=== PATIENT | female | born 1955 | race Caucasian/White ===

== ENCOUNTER 2016-08-12 08:11 | Inpatient (IN) | payer MEDICARE ==
[~2016-08-12] VITALS: Ht 152.4 cm; Wt 114.2 kg
[2016-08-12] MEDS ORDERED: ASPIRIN 81 MG CHEW TABLET PO ONE (08:30)
[2016-08-12] MEDS ORDERED: BUPR15TASR PO (08:39)
[2016-08-12] MEDS ORDERED: NIAS1TAB PO (08:39)
[2016-08-12] MEDS ORDERED: DRIS50002 PO (08:39)
[2016-08-12] MEDS ORDERED: LEVO200T4 PO (08:39)
[2016-08-12] MEDS ORDERED: CYMB60CA3 PO (08:39)
[2016-08-12] MEDS ORDERED: GLIM4TAB PO (08:39)
[2016-08-12] MEDS ORDERED: HUMA100I5 SC ×2 (08:39→12:52)
[2016-08-12] MEDS ORDERED: VITA100T20 PO (08:39)
[2016-08-12] MEDS ORDERED: PREG100CA PO (08:39)
[2016-08-12] MEDS ORDERED: FURO20TA2 PO (08:39)
[2016-08-12] MEDS ORDERED: LOVA20TA2 PO (08:39)
[2016-08-12] MEDS ORDERED: MELO7.5T7 PO (08:39)
[2016-08-12] MEDS ORDERED: TOUJ1.2I SC ×2 (08:39)
[2016-08-12] MEDS ORDERED: FENO145T PO (08:39)
[2016-08-12] MEDS ORDERED: PROP12CASA PO (08:39)
[2016-08-12] MEDS ORDERED: LOSA50TA20 PO (08:39)
[2016-08-12] MEDS ORDERED: VICT18IN SC (08:39)
[2016-08-12] MEDS ORDERED: PANT40TA2 PO (08:39)
[2016-08-12] MEDS ORDERED: AMIT10TA PO (08:39)
[2016-08-12] MEDS: buPROPion **SR TABLET** (ZYBAN) 150MG PO SCH ×2 (09:00→20:46)
[2016-08-12] MEDS ORDERED: FUROSEMIDE 20 MG TAB PO SCH (09:00)
[2016-08-12] MEDS ORDERED: DULoxetine 30 MG CAP (CYMBALTA) PO SCH (09:00)
[2016-08-12] MEDS: BACLOFEN 10 MG TAB PO SCH ×2 (09:00→20:46)
[2016-08-12 10:07] LABS: BASO % 0.4 % (0.0-1.0); EOS # 0.1 K/mm3 (0.0-0.50); EOS % 2.8 % (0.0-3.0); LARGE UNSTAINED CELL # 0.1 K/mm3 (0.0-0.4); LYMPH # 1.2 K/mm3 (1.5-4.5); LYMPH % 31.2 % (24.0-44.0); MEAN CORPUSCULAR HEMOGLOBIN 31.5 pg (27.0-33.0); MEAN CORPUSCULAR HGB CONC 33.2 g/dl (32.0-36.5); MEAN CORPUSCULAR VOLUME 94.8 fl (80.0-96.0); MONO # 0.2 K/mm3 (0.0-0.8); MONO % 6.1 % (0.0-5.0); NEUTROPHILS # 2.1 K/mm3 (1.8-7.7); NEUTROPHILS % 57.5 % (36.0-66.0); PLATELET COUNT, AUTOMATED 151 k/mm3 (150-450); RED CELL DISTRIBUTION WIDTH 13.8 % (11.5-14.5); WHITE BLOOD COUNT 3.7 K/mm3 (4.0-10.0)
[2016-08-12 10:29] LABS: METHADONE URINE NEGATIVE (NEGATIVE)
[2016-08-12 10:32] LABS: ANION GAP 6 MEQ/L (8-16); BLOOD UREA NITROGEN 55 MG/DL (7-18); CALCIUM LEVEL 8.5 MG/DL (8.8-10.2); CARBON DIOXIDE LEVEL 31 MEQ/L (21-32); CHLORIDE LEVEL 104 MEQ/L (98-107); CREATININE FOR GFR 2.85 MG/DL (0.55-1.02); GLOMERULAR FILTRATION RATE 17.9 (>45); GLUCOSE, FASTING 330 MG/DL (80-110); POTASSIUM SERUM 4.5 MEQ/L (3.5-5.1); SODIUM LEVEL 141 MEQ/L (136-145)
[2016-08-12] MEDS ORDERED: NS 500 ML IV ONE (11:45)
[2016-08-12] MEDS ORDERED: ACETAMINOPHEN TAB 650MG DOSE (2X325MG) PO PRN (12:45)
[2016-08-12] MEDS ORDERED: DEXTROSE 50% 50 ML SYRINGE IV PRN (12:45)
[2016-08-12] MEDS ORDERED: GLUCOSE 4 GM CHEW TABLET PO PRN (12:45)
[2016-08-12] MEDS ORDERED: GLUCAGON FOR INJ 1 MG VIAL (J1610) SC PRN (12:45)
[2016-08-12] MEDS ORDERED: ALBU17IN INH (12:52)
[2016-08-12] MEDS ORDERED: PROP120C PO (12:52)
[2016-08-12] MEDS ORDERED: BACL10TA2 PO (12:52)
[2016-08-12] MEDS ORDERED: NIAC500T55 PO (12:52)
[2016-08-12] MEDS: HumaLOG INSULIN (NovoLOG) PER UNIT SC SCH ×3 (13:10→20:47)
[2016-08-12] MEDS ORDERED: ALBUTEROL 90 MCG/ACT 8GM HFA INHALER INH PRN (13:30)
[2016-08-12] MEDS: NS 1,000 ML IV SCH (13:31)
[2016-08-12 14:05] VITALS: BP 116/56
[2016-08-12 14:15] VITALS: BP 117/74
--- NOTE | 2016-08-12 14:15 | REP ---
CT Head without contrast HISTORY: Altered mental status COMPARISON: None There is no intraparenchymal hemorrhage, acute infarct, mass or midline shift. The ventricular system is normal in appearance. There is no extra cerebral collection. There is no fracture. Mucosal thickening is present in the right maxillary and sphenoid sinuses are IMPRESSION: There is no intracranial lesion. Signed by Enrique Villarreal MD 08/12/2016 02:07 P
--- NOTE | 2016-08-12 14:52 | HPE ---
DATE OF ADMISSION: 08/12/2016 PRIMARY CARE PROVIDER: Dr. Lopez in [place]. HISTORY OF PRESENT ILLNESS: This patient is a 60-year-old female with a past medical history significant for depression, chronic kidney disease (CKD), diabetes, hypothyroidism who presented to [facility] on 08/12/2016 for acute discomfort. The patient stated when she woke up this morning, she was not feeling well and she feels her fate is melting. Denies any other significant symptoms. Review of systems includes 2 days ago around 11 p.m., the patient had acute mental status changes in the hotel observed by the son and the episode lasted for 1 hour, per son, "she is acting schizophrenic. She is counting numbers continuously and she still has repetitive movements resembling aerobic exercise. A similar episode occurring which later she had a collapse. The patient remained in a deep unconscious state for 10 days. That event occurred in the [facility] in [place], [place]. Later the patient had another trauma. The patient injured her head in June. At that time, the patient was hospitalized in the [facility] in [place]. Other significant history includes there a questionable visual hallucination in February. The patient was also complaining about auditory hallucinations since January 2016 and auditory hallucinations occurred approximately one to two times a week. Every time is it as thought two people are talking to each other. She does not know what the conversation is about. But she never had thoughts of hurting herself or hurting others. No new recent medication changes. ALLERGIES: No known drug allergies. PAST MEDICAL HISTORY: Diabetes. Chronic kidney disease. Endometriosis, status post hysterectomy. History of thyroid nodules, status post thyroidectomy resulting in hypothyroidism. Depression. PAST SURGICAL HISTORY: Hysterectomy. Thyroidectomy. Cataract surgery. SOCIAL HISTORY: Denies smoking. No denies alcohol use. Denies recreational drug use. The patient is a full code. HOME MEDICATIONS: - Ventolin two puffs inhalation four times a day. - amitriptyline 60 mg by mouth nightly. - baclofen 20 mg by mouth twice a day - bupropion 150 mg by mouth twice a day - vitamin B12 200 mcg by mouth daily - Cymbalta 60 mg by mouth daily - fenofibrate 145 mg by mouth daily - Lasix 20 mg by mouth daily - glimepiride 4 mg by mouth twice a day - insulin Lispro 30 units subcu every morning. - Synthroid 200 mcg by mouth daily - Victoza 1.8 mg subcu daily - losartan 15 mg by mouth daily - lovastatin 20 mg by mouth daily - meloxicam 50 mg by mouth daily - niacin 500 mg by mouth nightly - pantoprazole 40 mg by mouth daily - Lyrica 100 mg by mouth three times a day - propranolol 40 mg by mouth daily - Toujeo 80 units subcu every morning. - Toujeo 20 units subcu nightly. REVIEW OF SYSTEMS: General: No fever. No chills. HEENT: No vision changes. No auditory changes. Cardiovascular: No chest pain. No palpitations. Respiratory: No cough. No sputum production. No shortness of breath. GI: No nausea. No vomiting. No abdominal pain. Musculoskeletal: The patient has a chronic lymphedema of the lower extremities requiring Lasix regularly. The patient does have a history of right shoulder joint dislocation. Neurological: The patient has a history of frequent falls. The patient has a significant decrease of sensation throughout the whole body. Below the neck is the most significantly below the waist. VITAL SIGNS: Temperature is 98.3, pulse is 72, blood pressure is 138/92, pulse ox is 98% in room air. GENERAL: Morbidly obese. No sign of acute distress. Alert and oriented times three. HEENT: Normocephalic, atraumatic. Extraocular muscles are grossly intact. CARDIOVASCULAR: Distant heart sounds. Positive S1, S2. Regular rate. LUNGS: Clear to auscultation bilaterally. ABDOMEN: Soft, nontender, nondistended. Bowel sounds are present. No rebound. No guarding. EXTREMITIES: Nonsignificant edema. No cyanosis NEUROLOGICAL: Significant decrease, almost complete loss of sensation below the waist. Decreased sensation below the neck. There is some sensation to fine touch of the cervical and the facial area. Muscle strength 5/5 throughout. LABORATORY DATA: WBC 3.7, hemoglobin 11.9, hematocrit 35.8, platelet count 151. Sodium 141, potassium 4.5, chloride 104, carbon dioxide 31, BUN 50, creatinine 2.85, GFR 17.9, fasting glucose 330, calcium 8.5, total CK 415, troponin I is less than 0.02. Urine toxicology is negative. UA is negative. ASSESSMENT/PLAN: 1. Acute on chronic kidney injury: We received a record from [facility]. On 03/25/2016 the patient had a BUN of 28, creatinine 1.3. Currently, the patient has a creatinine of 2.85 with a GFR of 17.9. The patient was started on IV fluids. Lasix will be on hold. 2. Uncontrolled diabetes: The patient presents with an elevated glucose level. Will follow with an A1c. At this moment, the patient will be covered with long-acting insulin on a sliding scale and consistent carbohydrate diet. 3. Altered mental status: The patient had schizophrenic type of behavior approximately 2 days ago combined with auditory hallucinations. This is likely, the patient may have a significant psychiatric condition that was not diagnosed in the past. Once the patient is medically stable, we will likely pursue psychiatrist consultation. 4. History of depression: Continue patient's home medications. 5. Frequent falls with decreased sensation: Initially MRI was ordered, however, the patient states that she has a severe claustrophobia. She cannot tolerate the MRI even with sedation. She may only consider an open MRI. Unfortunately, we may not have a capacity at this moment. Will follow with a CT scan first. 6. Deep venous thrombosis (DVT) prophylaxis: The patient will be on heparin.
[2016-08-12 14:58] LABS: CHOLESTEROL LEVEL 132 MG/DL (<200); T UPTAKE 38 % (30-39); THYROXINE (T4) 11.7 UG/DL (4.5-12.0); TRIGLYCERIDES LEVEL 231 MG/DL (<150)
[2016-08-12] MEDS: HEPARIN SOD (PORCINE) 5000 UNITS/ML VIAL SC SCH ×2 (15:39→21:42)
[2016-08-12] MEDS: PREGABALIN 100 MG CAP (LYRICA) PO SCH ×2 (15:40→20:46)
[2016-08-12] MEDS: PROPRANOLOL 60 MG LA CAP PO SCH (15:40)
[2016-08-12] MEDS: PANTOPRAZOLE 40MG TAB (PROTONIX) PO SCH (15:41)
[2016-08-12] MEDS: LOSARTAN 50 MG TAB PO SCH (15:41)
[2016-08-12] MEDS: FENOFIBRATE 145 MG TAB (TRICOR) PO SCH (15:41)
[2016-08-12] MEDS: AMITRIPTYLINE 10 MG TAB PO SCH (20:46)
[2016-08-12] MEDS: NIACIN SR (NIASPAN) 500 MG TAB PO SCH (20:46)
[2016-08-12] MEDS: SIMVASTATIN 20 MG TAB PO SCH (20:46)
--- NOTE | 2016-08-12 20:55 | ECGEPIP ---
Stationary ECG Study 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
[2016-08-12] MEDS ORDERED: LEVEMIR (INSULIN DETEMIR) 1 UNITS/0.01ML SC SCH (21:00)
[2016-08-12 22:00] VITALS: BP 120/67
--- NOTE | 2016-08-12 22:30 | MHCRPDOC ---
[facility] Consultation Consultation DATE OF CONSULTATION: 08/12/16 CONSULTATION REQUESTED BY: REASON FOR CONSULTATION: Auditory and visual hallucinations, behavioral changes. RELEVANT HISTORY: Patient is a 89 year old female who resides in [place] but is currently in the [place] area because she has a son living in this area and she came for her grandson's graduation. She reports she has been seing strange things, like two people talking to each other. She says she can see them talk but she can't hear their conversation. Recently she had another episode when she saw snakes at her house in [place] and the rest of her family didn't see anything abnormal (no snakes). Recently she woke up and she couldn' t control her arms, she felt as if they were moving on their own. She explains it was almost as if she was flying. She also said that she kept moving involuntarily and it seemed as if she was doing abdominal crunches. PAST PSYCHIATRIC HISTORY: Longstanding history of depression treated with Wellbutrin, although she has been taking Cymbalta and Amytriptiline too. She says she takes Amytriptiline for chronic neck and back pain, takes Wellbutrin for depression and she is aware Cymbalta is for depression but can't recall when it was prescribed. She says she started feeling depressed when she was 43 years old, shortly after her father , with whom she was very close. Her mother had when she was 38. She went to a therapist and to a Psychiatrist but claims the medications she took, made her very sleepy, overtly sedated, and then, she consulted with another psychiatrist. She doesn't remember why she decided to stop seeing him but she has kept taking antidepressants that have been prescribed by her PCP. She says she became very depressed when one of her sons was diagnosed with leukemia and when her other son went to [employer], where he was stationed for some years. Denies history of trauma/abuse, denies substance abuse. PAST MEDICAL HISTORY: Hypothyroidism, Diabetes, Obesity, Lymphedema FAMILY HISTORY: Mother: Mother when she was 38 years old, apparently of cardiac problems Father: . Siblings: Children: has three children who are in good health PERSONAL AND SOCIAL HISTORY: The patient was born and raised in [place]. Reports she had a normal childhood, with loving and caring parents. Got , had three children with whom she has a good and close relationship. 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 She also says that she went back to school when she retired." Resides in: [place] Marital Status: M Children: Three children Employment: She is retired. SUBSTANCE ABUSE HISTORY: Smoking: Denies ETOH: Denies Illicit Drugs: Denies LEGAL HISTORY: Denies MENTAL STATUS EXAMINATION: Patient is a 60 year old who is alert and oriented x 3, pleasant, cooperative, with good eye contact and good rapport Speech is Circumstantial and slightly tangential. Language skills are Good. Thought processes including: Coherent, goal directed but circumstantial Thought content: About her medical illness and worries about her losses (mother , father) Abstract reasoning, and computation: Fair Description of associations: Slightly loose. Description of abnormal or psychotic thoughts: She reports visual hallucinations , denies thought delusions, denies suicidal or homicidal ideation Judgment: Fair Insight: Fair. Orientation to Oriented x 3. Recent and remote memory: Intact. Attention span and concentration: Fair. Language: Noraml. Fund of knowledge: Adequate. Mood:"Sad". Affect: Sad, mood congruent,. DIAGNOSIS: 1. R/O Major Depressive disorder, chronic with psychotic features 2. R/O psychosis secondary to medical condition PLAN: 1. Recommend liver function tests, blood chemistry, MRI of the brain. Noticed CT scan was normal, but maybe MRI can give some additional information. 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 The abnormal movements that she suffered could be related to problems within the basal ganglia. A thorough medical workup is recommended. 2. Medications> Recommend to slowly taper Cymbalta to 30 mgs PO QD for three days and then, 30 mgs every other day for three more days and keep her on Wellbutrin. She should be started on Haldol 2 mgs PO Q4 hrs. to control the hallucinations and Benadryl 50 mgs. PO TID PRN for possible extrapyramidal side effects that could be caused by Haldol Vital Signs Vital Signs Date Time Temp Pulse Resp B/P (MAP) Pulse Ox O2 Delivery O2 Flow Rate FiO2 7/17 15:41 117/74 08/12/16 15:40 78 08/12/16 14:15 98.3 18 96 Room Air Laboratory Data 24H Labs Laboratory Tests 2 08/12/16 09:11: White Blood Count 3.7L, Red Blood Count 3.78L, Hemoglobin 11.9L, Hematocrit 35.8L, Mean Corpuscular Volume 94.8, Mean Corpuscular Hemoglobin 31.5, Mean Corpuscular Hemoglobin Concent 33.2, Red Cell Distribution Width 13.8, Platelet Count 151, Neutrophils (%) (Auto) 57.5, Lymphocytes (%) (Auto) 31.2, Monocytes ( %) (Auto) 6.1H, Eosinophils (%) (Auto) 2.8, Basophils (%) (Auto) 0.4, Neutrophils # (Auto) 2.1, Lymphocytes # (Auto) 1.2L, Monocytes # (Auto) 0.2, Eosinophils # (Auto) 0.1, Basophils # (Auto) 0.0, Large Unclassified Cells % 2.0 , Large Unclassified Cells # 0.1, Anion Gap 6L, Glomerular Filtration Rate 17.9L , Estimated Mean Plasma Glucose 206H, Hemoglobin A1c 8.8H, Blood Urea Nitrogen 55H, Creatinine 2.85H, Sodium Level 141, Potassium Level 4.5, Chloride Level 104 , Carbon Dioxide Level 31, Calcium Level 8.5L, Total Creatine Kinase 415H, Creatine Kinase MB 4.4H, Creatine Kinase MB Relative Index 1.06, Troponin I < 0.02, Triglycerides Level 231H, LDL Cholesterol 52.8, Total Cholesterol 132, Non -HDL Cholesterol (LDL + VLDL) 99, Total HDL Cholesterol 33L, Cholesterol/HDL Ratio 4.000, Thyroid Stimulating Hormone (TSH) 0.342L, Free Thyroxine Index 4.4 , Thyroxine (T4) 11.7, Triiodothyronine (T3) Uptake 38, Urine Amphetamines Screen NEGATIVE, Urine Benzodiazepines Screen NEGATIVE, Urine Opiates Screen NEGATIVE, Urine Methadone Screen NEGATIVE, Urine Barbiturates Screen NEGATIVE, Urine Phencyclidine Screen NEGATIVE, Urine Cocaine Metabolite Screen NEGATIVE, Urine Cannabinoids Screen NEGATIVE 08/12/16 09:21: Urine Appearance HAZY, Urine Color YELLOW, Urine pH 5.0, Urine Specific [place] 1.014, Urine Protein NEGATIVE, Urine Glucose (UA) 3+H, Urine Ketones NEGATIVE, Urine Urobilinogen 0.2, Urine Bilirubin NEGATIVE, Urine Leukocyte Esterase NEGATIVE, Urine Blood NEGATIVE, Urine Nitrite NEGATIVE, Urine WBC (Auto) 2, Urine RBC (Auto) 0, Urine Hyaline Casts (Auto) 14, Urine Bacteria (Auto) 1+H, Urine Squamous Epithelial Cells 0, Urine Mucus (Auto) SMALL, Urine Sperm (Auto) 08/12/16 13:08: Bedside Glucose (Misc Panel) 266H 08/12/16 17:03: Erythrocyte Sedimentation Rate 29, Vitamin B12 Level 488, Rheumatoid Factor < 10.0, Syphilis Serology NONREACTIVE, Hepatitis A IgM Antibody NEGATIVE, Hepatitis B Surface Antigen NEGATIVE, Hepatitis B Core IgM Antibody NEGATIVE, Hepatitis C Antibody Index 0.0 08/12/16 18:09: Bedside Glucose (Misc Panel) 351H 08/12/16 20:40: Bedside Glucose (Misc Panel) 349H Home Medications Current Medications Current Medications Acetaminophen (Tylenol Tab) 650 mg Q4HP PRN PO MILD PAIN OR FEVER; Start at 12:45; Stop 09/11/16 at 12:44 Albuterol Sulfate (Proventil, Ventolin Hfa) 2 puff QID PRN INH SHORTNESS OF BREATH; Start 08/12/16 at 13:30; Stop 09/11/16 at 13:29 Amitriptyline HCl (Elavil) 60 mg QHS PO Last administered on 08/12/16 20:46; Start 08/12/16 at 21:00; Stop 09/11/16 at 20:59 Baclofen (Lioresal) 20 mg BID PO Last administered on 08/12/16 20:46; Start 08/12/16 at 09:00; Stop 09/11/16 at 08:59 Bupropion HCl (Zyban, Wellbutrin Sr) 150 mg BID PO Last administered on 20:46; Start 08/12/16 at 09:00; Stop 09/11/16 at 08:59 Dextrose (Dextrose 50%) 25 ml ASDIRECTED PRN IV SEE LABEL COMMENTS; Start at 12:45; Stop 09/11/16 at 12:44 Duloxetine HCl (Cymbalta) 60 mg DAILY PO Last administered on 08/12/16 15:40; Start 08/12/16 at 09:00; Stop 09/11/16 at 08:59 Fenofibrate (Tricor) 145 mg DAILY PO Last administered on 08/12/16 15:41; Start 08/12/16 at 09:00; Stop 09/11/16 at 08:59 Furosemide (Lasix) 20 mg DAILY PO ; Start 08/12/16 at 09:00; Stop 08/12/16 at 13: 56; Status DC Glucagon (Glucagon) 1 mg ASDIRECTED PRN SC SEE LABEL COMMENTS; Start 08/12/16 at 12:45; Stop 09/11/16 at 12:44 Glucose (Glucose) 16 GM ASDIRECTED PRN PO SEE LABEL COMMENTS; Start 08/12/16 at 12:45; Stop 09/11/16 at 12:44 Heparin Sodium (Porcine) (Heparin) 5,000 units Q8H SC Last administered on 21:42; Start 08/12/16 at 14:00; Stop 08/17/16 at 13:59 Home Med (Med Rec Complete!) ASDIRECTED XX ; Start 08/12/16 at 13:00; Stop at 13:00; Status DC Insulin Detemir (Levemir Insulin) 20 units QHS SC Last administered on 20:47; Start 08/12/16 at 21:00; Stop 09/11/16 at 20:59 Insulin Detemir (Levemir Insulin) 60 units QAM SC ; Start 08/13/16 at 09:00; Stop 09/12/16 at 08:59 Insulin Human Lispro (HumaLOG INSULIN) SEE PROTOCOL TABLE AC SC Last administered on 08/12/16 18:40; Start 08/12/16 at 12:00; Stop 09/11/16 at 11:59 Insulin Human Lispro (HumaLOG INSULIN) SEE PROTOCOL TABLE QHS SC Last administered on 08/12/16 20:47; Start 08/12/16 at 21:00; Stop 09/11/16 at 20:59 Levothyroxine Sodium (Synthroid) 200 mcg DAILY@0600 PO ; Start 08/13/16 at 06:00 ; Stop 09/12/16 at 05:59 Losartan Potassium (Cozaar) 50 mg DAILY PO Last administered on 08/12/16 15:41 ; Start 08/12/16 at 09:00; Stop 09/11/16 at 08:59 Niacin (Niaspan) 500 mg QHS PO Last administered on 08/12/16 20:46; Start at 21:00; Stop 09/11/16 at 20:59 Pantoprazole Sodium (Protonix) 40 mg DAILY PO Last administered on 08/12/16 15: 41; Start 08/12/16 at 09:00; Stop 09/11/16 at 08:59 Pregabalin (Lyrica) 100 mg TID PO Last administered on 08/12/16 20:46; Start at 16:00; Stop 08/19/16 at 15:59 Propranolol HCl (Inderal La) 240 mg DAILY PO Last administered on 08/12/16 15: 40; Start 08/12/16 at 09:00; Stop 09/11/16 at 08:59 Simvastatin (Zocor) 20 mg QHS PO Last administered on 08/12/16 20:46; Start 08/12/16 at 21:00; Stop 09/11/16 at 20:59 Sodium Chloride 1,000 ml @ 80 mls/hr [id number] IV Last administered on 08/12/16 13:31; Start 08/12/16 at 13:00; Stop 09/11/16 at 12:59 Scheduled (Toujeo Solostar) 300 Unit/Ml Inj, 80 UNIT SC QAM, (Reported) (Toujeo Solostar) 300 Unit/Ml Inj, 20 UNIT SC QHS, (Reported) Amitriptyline HCl (Amitriptyline HCl) 10 Mg Tab, 60 MG PO QHS, (Reported) Baclofen (Baclofen) 10 Mg Tab, 20 MG PO BID, (Reported) Bupropion HCl (Bupropion HCl Sr) 150 Mg Tab, 150 MG PO BID, (Reported) Cyanocobalamin (Vitamin B12) 100 Mcg Tab, 200 MCG PO DAILY, (Reported) Duloxetine Hcl (Cymbalta) 60 Mg Cap, 60 MG PO DAILY, (Reported) Fenofibrate (Fenofibrate) 145 Mg Tab, 145 MG PO DAILY, (Reported) Furosemide (Furosemide) 20 Mg Tab, 20 MG PO DAILY, (Reported) Glimepiride (Glimepiride) 4 Mg Tab, 4 MG PO BID, (Reported) Insulin Human Lispro (Humalog Kwikpen) 100 Unit/Ml Inj, 30 UNITS SC AC, ( Reported) Insulin Human Lispro (Humalog Kwikpen) 100 Unit/Ml Inj, 0 SC AC, (Reported) PER SLIDING SCALE IN ADDITION TO SCHEDULED 30 UNITS Levothyroxine Sodium (Synthroid) 200 Mcg Tab, 200 MCG PO DAILY, (Reported) Liraglutide (Victoza) 18 Mg/3 Ml Inj, 1.8 MG SC DAILY, (Reported) Losartan Potassium (Losartan Potassium) 50 Mg Tab, 50 MG PO DAILY, (Reported) Lovastatin (Lovastatin) 20 Mg Tab, 20 MG PO DAILY, (Reported) Meloxicam (Meloxicam) 7.5 Mg Tab, 15 MG PO DAILY, (Reported) Niacin (Niacin ER) 500 Mg Tab, 500 MG PO QHS, (Reported) Pantoprazole Sodium (Pantoprazole Sodium) 40 Mg Tab, 40 MG PO DAILY, (Reported) Pregabalin (Lyrica) 100 Mg Cap, 100 MG PO TID, (Reported) Propranolol HCl (Propranolol HCl ER) 120 Mg Cap, 240 MG PO DAILY, (Reported) Vitamin D (Drisdol) 50,000 Unit Cap, 50,000 UNIT PO QWEEK, (Reported) MONDAYS Scheduled PRN Albuterol Sulfate (Ventolin Hfa) 200 Puff/8 Gm Aers, 2 PUFF INH QID PRN for SHORTNESS OF BREATH, (Reported) Allergies Coded Allergies: Morphine (Verified Adverse Reaction, Intermediate, itching and vomiting, ) VICENTE FLOYD MD Aug 12, 2016 22:30
[2016-08-13] MEDS: NS 1,000 ML IV SCH ×2 (01:04→13:35)
[2016-08-13] MEDS: HEPARIN SOD (PORCINE) 5000 UNITS/ML VIAL SC SCH ×3 (05:43→21:02)
[2016-08-13] MEDS: LEVOTHYROXINE 100MCG TABLET (0.1MG) PO SCH (05:43)
[2016-08-13 06:00] VITALS: BP 125/68
[2016-08-13 06:04] LABS: MEAN CORPUSCULAR HGB CONC 34.1 g/dl (32.0-36.5); MEAN CORPUSCULAR VOLUME 96.8 fl (80.0-96.0); RED CELL DISTRIBUTION WIDTH 13.7 % (11.5-14.5); WHITE BLOOD COUNT 3.3 K/mm3 (4.0-10.0)
[2016-08-13 06:36] LABS: ANION GAP 5 MEQ/L (8-16); BLOOD UREA NITROGEN 51 MG/DL (7-18); CALCIUM LEVEL 8.6 MG/DL (8.8-10.2); CARBON DIOXIDE LEVEL 28 MEQ/L (21-32); CHLORIDE LEVEL 108 MEQ/L (98-107); CREATININE FOR GFR 2.32 MG/DL (0.55-1.02); GLOMERULAR FILTRATION RATE 22.7 (>45); GLUCOSE, FASTING 370 MG/DL (80-110); POTASSIUM SERUM 4.9 MEQ/L (3.5-5.1); SODIUM LEVEL 141 MEQ/L (136-145)
[2016-08-13 07:56] LABS: ALBUMIN 2.8 GM/DL (3.2-5.2); ALKALINE PHOSPHATASE 64 U/L (45-117); AST/SGOT 26 U/L (15-37); BILIRUBIN,TOTAL 0.3 MG/DL (0.2-1.0); TOTAL PROTEIN 5.6 GM/DL (6.4-8.2)
[2016-08-13 08:21] LABS: ALT/SGPT 22 U/L (12-78)
[2016-08-13 08:22] LABS: BILIRUBIN,DIRECT < 0.1 MG/DL (0.0-0.2)
[2016-08-13] MEDS: HumaLOG INSULIN (NovoLOG) PER UNIT SC SCH ×4 (08:25→21:02)
[2016-08-13] MEDS: LOSARTAN 50 MG TAB PO SCH (08:27)
[2016-08-13] MEDS: BACLOFEN 10 MG TAB PO SCH ×2 (08:27→21:01)
[2016-08-13] MEDS: PREGABALIN 100 MG CAP (LYRICA) PO SCH ×3 (08:27→21:01)
[2016-08-13] MEDS: PANTOPRAZOLE 40MG TAB (PROTONIX) PO SCH (08:27)
[2016-08-13] MEDS: FENOFIBRATE 145 MG TAB (TRICOR) PO SCH (08:27)
[2016-08-13] MEDS: DULoxetine 30 MG CAP (CYMBALTA) PO SCH (08:28)
[2016-08-13] MEDS: buPROPion **SR TABLET** (ZYBAN) 150MG PO SCH ×2 (08:29→21:00)
[2016-08-13] MEDS: PROPRANOLOL 60 MG LA CAP PO SCH (08:30)
[2016-08-13] MEDS ORDERED: LEVEMIR (INSULIN DETEMIR) 1 UNITS/0.01ML SC SCH (09:00)
[2016-08-13 11:45] VITALS: BP 117/74
--- NOTE | 2016-08-13 12:03 | REP ---
Clinical: Chest and thoracic pain. Findings: The bilateral lung gonzales are relatively well aerated. Very minimal chronic-appearing fibroatelectatic changes and trace scarring noted in the lingula and left upper lobe. No acute consolidation, significant nodule or mass lesion. Pleural effusion/reaction or pneumothorax. Tracheobronchial tree is patent. The mediastinum demonstrates very minimal atherosclerotic changes to the thoracic aorta and coronary arteries without aortic aneurysm or cardiomegaly. The musculoskeletal structures are intact. There is no evidence for acute fracture. The thoracic spine demonstrates mild multilevel degenerative changes including marginal osteophytes and minimal disc space narrowing with normal alignment and kyphosis. There is no evidence for acute fracture / compression injury or subluxation. Lytic lesions in the T7 and T9 vertebral are consistent with benign hemangiomas. Impression: 1. Very minimal chronic-appearing changes to the lingula and left upper lobe without evidence for acute mediastinal or pleuroparenchymal process. 2. Thoracic spine demonstrates mild age-related degenerative changes as well as small benign hemangiomas in the T7 and T9 vertebral bodies. No acute fracture / compression injury or subluxation. Signed by Misael Greene MD 08/13/2016 11:55 A
--- NOTE | 2016-08-13 12:15 | REP ---
Clinical: Neck pain. Technique: Axial noncontrast images from the skull base to the thoracic inlet with coronal and sagittal re-formations. Findings: No acute fracture / compression injury or subluxation is appreciated. Alignment is maintained. Focal advanced degenerative change at the C5-6 level includes marginal and posterior osteophytosis, endplate sclerosis and disc space narrowing as well as uncovertebral hypertrophy mildly narrowing the associated neural foramen. Moderate similar but less pronounced degenerative changes are appreciated at the C6-7 level. Mild multilevel degenerative changes are appreciated throughout the remainder of the cervical spine. Spinal canal appears patent. Posterior elements and spinous processes appear intact. Paravertebral soft tissues are normal. Impression: Multilevel degenerative changes as described above. Signed by Misael Greene MD 08/13/2016 12:07 P
[2016-08-13 14:00] VITALS: BP 147/55
--- NOTE | 2016-08-13 18:00 | IPN ---
DATE: 08/13/2016 SUBJECTIVE: The patient is seen and examined in the room today. The patient is complaining about difficulty with urination. The patient stated the hallucinations she had is two individuals. She can visualize two individuals talking to each other, but she only can hear part of the words and she does not understand their conversations. She is sure she is the only one who can hear those discussions. OBJECTIVE: VITAL SIGNS: Temperature 97.1, pulse 72, respirations 18, blood pressure 125/68, pulse oximetry 93% on room air. GENERAL: No sign of acute distress. Alert and oriented times three. HEENT: Normocephalic, atraumatic. Extraocular motor grossly intact. CARDIOVASCULAR: Positive S1, S2. Regular rate. LUNGS: Clear to auscultation bilaterally. ABDOMEN: Morbidly obese, soft, nontender, nondistended. Bowel sounds present. No rebound, no guarding. EXTREMITIES: No edema. No sign of cyanosis. NEUROLOGIC: Almost complete loss of sensation below the waist, there is decreased sensation below the neck. The patient has normal muscle strength. Rectal tone intact. LABORATORY DATA: WBC 3.3, hemoglobin 11.1, hematocrit 32.6, platelet count 146. Sodium 141, potassium 4.9, chloride 108, carbon dioxide 28, BUN 51, creatinine 2.32, GFR is 22.7, fasting glucose 270, calcium 8.6, total bilirubin 0.3, direct bilirubin less than 0.1, AST 26. ALT 22, alkaline phosphatase 64, ammonia level 33. Total protein 5.6, albumin 2.8. ASSESSMENT AND PLAN: 1. Acute on chronic kidney injury: The patient continues on fluid support. On 03/2016, the patient had a creatinine of 1.3. 2. Uncontrolled diabetes: The patient's A1c is 8.8. 3. Severe peripheral neuropathy. I spoke to the neurologist area operations director. Unfortunately the patient cannot tolerate MRI due to claustrophobia. Currently we do not have the capacity to obtain open MRI. Will follow with CT of thoracic spine and CT of cervical spine. 3. Auditory and visual hallucinations. Psychiatrist has consulted and recommends adjustment of Cymbalta. 4. Obstructive sleep apnea (STORM) on continuous positive airway pressure (CPAP). 5. Hypothyroid. On supplements. 6. Depression: We appreciate the psychiatrist adjusted the patient's medications. 7. Frequent falls. Will follow with physical therapy evaluation. 8. Deep venous thrombosis (DVT) prophylaxis. On heparin.
[2016-08-13] MEDS: NIACIN SR (NIASPAN) 500 MG TAB PO SCH (21:00)
[2016-08-13] MEDS: AMITRIPTYLINE 10 MG TAB PO SCH (21:01)
[2016-08-13] MEDS: SIMVASTATIN 20 MG TAB PO SCH (21:01)
[2016-08-13] MEDS: LEVEMIR (INSULIN DETEMIR) 1 UNITS/0.01ML SC SCH (21:02)
[2016-08-13 22:00] VITALS: BP 126/63
[2016-08-14] MEDS: NS 1,000 ML IV SCH ×2 (05:02→16:46)
[2016-08-14 06:00] VITALS: BP 119/60
[2016-08-14] MEDS: LEVOTHYROXINE 100MCG TABLET (0.1MG) PO SCH (06:11)
[2016-08-14] MEDS: HEPARIN SOD (PORCINE) 5000 UNITS/ML VIAL SC SCH ×3 (06:11→22:20)
[2016-08-14 06:28] LABS: MEAN CORPUSCULAR HEMOGLOBIN 32.6 pg (27.0-33.0); MEAN CORPUSCULAR HGB CONC 34.1 g/dl (32.0-36.5); MEAN CORPUSCULAR VOLUME 95.6 fl (80.0-96.0); RED CELL DISTRIBUTION WIDTH 13.6 % (11.5-14.5); WHITE BLOOD COUNT 3.4 K/mm3 (4.0-10.0)
[2016-08-14 06:45] LABS: CALCIUM LEVEL 8.8 MG/DL (8.8-10.2); CREATININE FOR GFR 1.69 MG/DL (0.55-1.02); GLOMERULAR FILTRATION RATE 32.8 (>45); POTASSIUM SERUM 4.5 MEQ/L (3.5-5.1)
[2016-08-14] MEDS: FENOFIBRATE 145 MG TAB (TRICOR) PO SCH (08:19)
[2016-08-14] MEDS: PROPRANOLOL 60 MG LA CAP PO SCH (08:19)
[2016-08-14] MEDS: LOSARTAN 50 MG TAB PO SCH (08:19)
[2016-08-14] MEDS: BACLOFEN 10 MG TAB PO SCH ×2 (08:19→22:19)
[2016-08-14] MEDS: buPROPion **SR TABLET** (ZYBAN) 150MG PO SCH ×2 (08:19→22:19)
[2016-08-14] MEDS: PANTOPRAZOLE 40MG TAB (PROTONIX) PO SCH (08:19)
[2016-08-14] MEDS: DULoxetine 30 MG CAP (CYMBALTA) PO SCH (08:19)
[2016-08-14] MEDS: PREGABALIN 100 MG CAP (LYRICA) PO SCH ×3 (08:20→22:19)
[2016-08-14] MEDS: LEVEMIR (INSULIN DETEMIR) 1 UNITS/0.01ML SC SCH ×2 (08:21→22:20)
[2016-08-14] MEDS: HumaLOG INSULIN (NovoLOG) PER UNIT SC SCH ×4 (08:21→22:20)
[2016-08-14 14:00] VITALS: BP 140/60
--- NOTE | 2016-08-14 15:38 | IPN ---
DATE: 08/14/2016 SUBJECTIVE: The patient is seen and examined in the room today. The patient does not have any acute complaints or acute changes, breathing comfortably on room air. No overnight events reported. The patient does not have recurrence of visual or auditory hallucinations. OBJECTIVE: VITAL SIGNS: Temperature 97, pulse 64, respirations 18, blood pressure 119/60, pulse oximetry 93%. GENERAL: No sign of acute distress. Alert and oriented times three. HEENT: Normocephalic, atraumatic. Extraocular motor grossly intact. CARDIOVASCULAR: Positive S1, S2. Regular rate. LUNGS: Clear to auscultation bilaterally. ABDOMEN: Soft, nontender, nondistended. Bowel sounds present. No rebound, no guarding. EXTREMITIES: No edema. No sign of cyanosis. NEUROLOGIC: Almost complete loss of sensation below the waist. There is decreased sensation below the neck. Muscle strength normal. LABORATORY DATA: WBC 3.4, hemoglobin 11.8, hematocrit 34.6, platelet count 159. Sodium 144, potassium 4.5, chloride 112, carbon dioxide 27, BUN 36, creatinine 1.69. GFR is 32.8. Fasting glucose 249, calcium 8.8. ASSESSMENT AND PLAN: 1. Acute on chronic kidney injury. The patient continues to have continued improvement of the renal function. In March 2016, the patient had a baseline creatinine of 1.3. Currently the patient's creatinine is 1.69. 2. Uncontrolled diabetes, A1c of 8.8. Patient is covered with sliding scale. 3. Severe peripheral neuropathy. The patient is not able to tolerate MRI; unfortunately, we do not have the capacity for MRI. CT of the head, neck and thoracic spine is negative. 4. Auditory and visual hallucinations. Psychiatry has been consulted. Recommended Cymbalta. Neurology has been consulted who recommends outpatient followup. 5. Obstructive sleep apnea (STORM) on continuous positive airway pressure (CPAP). 6. Hypothyroidism on supplements. 7. Depression. The patient's medication is being reviewed by the psychiatrist. We appreciate their assistance. 8. Frequent falls. The patient is on a tapering regimen for the Cymbalta. 9. Deep venous thrombosis (DVT) prophylaxis on heparin.
[2016-08-14 22:00] VITALS: BP 123/64
[2016-08-14] MEDS: NIACIN SR (NIASPAN) 500 MG TAB PO SCH (22:19)
[2016-08-14] MEDS: AMITRIPTYLINE 10 MG TAB PO SCH (22:19)
[2016-08-14] MEDS: SIMVASTATIN 20 MG TAB PO SCH (22:19)
[2016-08-14] MEDS: NYSTATIN 100,000 UNITS/GM TOPICAL PWD 15 GM TOP SCH (22:20)
[2016-08-15] MEDS: NS 1,000 ML IV SCH ×2 (04:44→15:51)
[2016-08-15 06:00] VITALS: BP 117/65
[2016-08-15 06:03] LABS: MEAN CORPUSCULAR HEMOGLOBIN 32.8 pg (27.0-33.0); MEAN CORPUSCULAR HGB CONC 34.3 g/dl (32.0-36.5); MEAN CORPUSCULAR VOLUME 95.6 fl (80.0-96.0); RED CELL DISTRIBUTION WIDTH 13.8 % (11.5-14.5); WHITE BLOOD COUNT 3.7 K/mm3 (4.0-10.0)
[2016-08-15 06:13] LABS: CALCIUM LEVEL 8.9 MG/DL (8.8-10.2); CREATININE FOR GFR 1.71 MG/DL (0.55-1.02); GLOMERULAR FILTRATION RATE 32.3 (>45); POTASSIUM SERUM 4.8 MEQ/L (3.5-5.1)
[2016-08-15] MEDS: LEVOTHYROXINE 100MCG TABLET (0.1MG) PO SCH (06:22)
[2016-08-15] MEDS: HEPARIN SOD (PORCINE) 5000 UNITS/ML VIAL SC SCH ×3 (06:22→21:35)
[2016-08-15] MEDS: HumaLOG INSULIN (NovoLOG) PER UNIT SC SCH ×4 (07:58→20:26)
[2016-08-15] MEDS: NYSTATIN 100,000 UNITS/GM TOPICAL PWD 15 GM TOP SCH ×2 (09:00→20:27)
[2016-08-15] MEDS: buPROPion **SR TABLET** (ZYBAN) 150MG PO SCH ×2 (09:13→20:25)
[2016-08-15] MEDS: BACLOFEN 10 MG TAB PO SCH ×2 (09:13→20:25)
[2016-08-15] MEDS: FENOFIBRATE 145 MG TAB (TRICOR) PO SCH (09:14)
[2016-08-15] MEDS: PREGABALIN 100 MG CAP (LYRICA) PO SCH ×3 (09:14→20:25)
[2016-08-15] MEDS: PROPRANOLOL 60 MG LA CAP PO SCH (09:14)
[2016-08-15] MEDS: DULoxetine 30 MG CAP (CYMBALTA) PO SCH (09:14)
[2016-08-15] MEDS: PANTOPRAZOLE 40MG TAB (PROTONIX) PO SCH (09:14)
[2016-08-15] MEDS: LOSARTAN 50 MG TAB PO SCH (09:14)
[2016-08-15] MEDS: LEVEMIR (INSULIN DETEMIR) 1 UNITS/0.01ML SC SCH ×2 (09:15→20:26)
[2016-08-15 14:00] VITALS: BP 138/70
--- NOTE | 2016-08-15 16:01 | REP ---
MR BRAIN WITHOUT CONTRAST: HISTORY: Altered mental status. COMPARISON: CT 08/12/2016 There are no areas of abnormal signal intensity in the brain. There is no intraparenchymal hemorrhage, acute infarct, mass or midline shift. The ventricular system is normal in appearance. There is no extracerebral collection. Mucosal thickening is present in the right maxillary and sphenoid sinuses and right mastoid air cells. IMPRESSION: There is no intracranial lesion. Signed by Enrique Villarreal MD 08/15/2016 04:14 P
--- NOTE | 2016-08-15 16:02 | IPN ---
DATE: 08/15/2016 SUBJECTIVE: The patient is seen and examined in the room today. The patient does not have any acute complaints or acute changes. The patient just feels tired today. No recurrence of the abnormal behaviors. The patient stated she has a flight to get back to [place] where she has a primary residence on which is 08/17/2016. OBJECTIVE: VITAL SIGNS: Temperature is 97.3, pulse is 66, respirations 18, blood pressure is 117/65, pulse oximetry is 96% in room air. GENERAL: No sign of acute distress, alert and oriented times three. HEENT: Normocephalic, atraumatic. Extraocular motor grossly intact. CARDIOVASCULAR: Positive S1, S2. Regular rate. LUNGS: Clear to auscultation bilaterally. ABDOMEN: Soft, nontender, nondistended. Bowel sounds present. No rebound. No guarding. EXTREMITIES: No edema. No sign of cyanosis. NEUROLOGIC: Almost complete loss of sensation below the waist. There is decreased sensation below the neck. Muscle strength is normal. LABORATORY DATA: WBC is 3.7, hemoglobin 11.3, hematocrit 32.6, platelet count is 152. Sodium is 141, potassium 4.8, chloride is 109, carbon dioxide 28, BUN is 33, creatinine is 1.71, GFR is 32.3, fasting glucose is 226, calcium is 8.9. ASSESSMENT AND PLAN: 1. Acute on chronic kidney injury. The patient has a baseline creatinine of 1.3 in March 2016. The patient's creatinine is improving. Continue to monitor. 2. Uncontrolled diabetes with A1c of 8.8. The patient is covered with insulin sliding scale. 3. Auditory and visual hallucinations. Psychiatry has been consulted and recommended Cymbalta tapering. Neurology also consulted who recommended outpatient followup. In [place], the patient does have a neurologist who she has been following on a regular basis. However, the patient does not have a psychiatrist in [place]. Due to claustrophobia, the patient could not tolerate MRI. Today, we finally have the capacity for open MRI. The patient will have an MRI scan done today. 4. Severe peripheral neuropathy. The patient had a negative CT of the head, neck, and thoracic spine. We will followup with the MRI. 5. Obstructive sleep apnea (STORM), on continuous positive airway pressure (CPAP). 6. Hypothyroidism, on Synthroid. 7. Depression. The patient's medication has been reviewed by the psychiatrist. We appreciate their assistance. The patient had frequent falls. The patient is on a tapering dose of Cymbalta. The patient is followed with physical therapy. The patient is not cleared by physical therapy for discharge today. 8. Deep venous thrombosis (DVT) prophylaxis on heparin.
--- NOTE | 2016-08-15 16:02 | REP ---
MRA BRAIN WITHOUT CONTRAST: HISTORY: Altered mental status. 3D TOF MR angiography was performed at the level of the [place]. There is no aneurysm or arteriovenous malformation. Mild atherosclerotic disease involves the cavernous internal carotid arteries. There is origin of the left posterior cerebral artery. 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 Major intracranial vessels are patent. The left vertebral artery is dominant. IMPRESSION: 1. There is no aneurysm or arteriovenous malformation. 2. Atherosclerotic disease as described above. Signed by Enrique Villarreal MD 08/15/2016 04:14 P
[2016-08-15] MEDS: AMITRIPTYLINE 10 MG TAB PO SCH (20:25)
[2016-08-15] MEDS: SIMVASTATIN 20 MG TAB PO SCH (20:25)
[2016-08-15] MEDS: NIACIN SR (NIASPAN) 500 MG TAB PO SCH (20:25)
[2016-08-15 22:00] VITALS: BP 130/63
[2016-08-16] MEDS: NS 1,000 ML IV SCH (05:13)
[2016-08-16] MEDS: LEVOTHYROXINE 100MCG TABLET (0.1MG) PO SCH (05:45)
[2016-08-16] MEDS: HEPARIN SOD (PORCINE) 5000 UNITS/ML VIAL SC SCH ×3 (05:45→21:13)
[2016-08-16 06:00] VITALS: BP 142/74
[2016-08-16 07:27] LABS: MEAN CORPUSCULAR HEMOGLOBIN 32.4 pg (27.0-33.0); MEAN CORPUSCULAR HGB CONC 33.6 g/dl (32.0-36.5); MEAN CORPUSCULAR VOLUME 96.4 fl (80.0-96.0); RED CELL DISTRIBUTION WIDTH 13.8 % (11.5-14.5); WHITE BLOOD COUNT 4.4 K/mm3 (4.0-10.0)
[2016-08-16] MEDS: HumaLOG INSULIN (NovoLOG) PER UNIT SC SCH ×4 (07:49→20:27)
[2016-08-16 07:52] LABS: CALCIUM LEVEL 8.8 MG/DL (8.8-10.2); CREATININE FOR GFR 1.6 MG/DL (0.55-1.02); GLOMERULAR FILTRATION RATE 34.9 (>45)
[2016-08-16 07:58] LABS: POTASSIUM SERUM 5.3 MEQ/L (3.5-5.1)
[2016-08-16] MEDS: NYSTATIN 100,000 UNITS/GM TOPICAL PWD 15 GM TOP SCH ×2 (09:00→20:28)
[2016-08-16] MEDS: LOSARTAN 50 MG TAB PO SCH (10:15)
[2016-08-16] MEDS: FENOFIBRATE 145 MG TAB (TRICOR) PO SCH (10:15)
[2016-08-16] MEDS: PROPRANOLOL 60 MG LA CAP PO SCH (10:15)
[2016-08-16] MEDS: PANTOPRAZOLE 40MG TAB (PROTONIX) PO SCH (10:15)
[2016-08-16] MEDS: buPROPion **SR TABLET** (ZYBAN) 150MG PO SCH ×2 (10:15→20:28)
[2016-08-16] MEDS: PREGABALIN 100 MG CAP (LYRICA) PO SCH ×3 (10:15→20:28)
[2016-08-16] MEDS: BACLOFEN 10 MG TAB PO SCH ×2 (10:15→20:28)
[2016-08-16] MEDS: LEVEMIR (INSULIN DETEMIR) 1 UNITS/0.01ML SC SCH ×2 (10:16→20:26)
[2016-08-16] MEDS ORDERED: SOD POLYSTYRENE SULFONATE SUSP 15 GM/60 ML UD PO ONE (12:00)
--- NOTE | 2016-08-16 13:46 | IPNPDOC ---
Subjective Date Seen The patient was seen on 08/16/16. Subjective Chief Complaint/HPI The patient is a 60-year-old female admitted with a reason for visit of Acute Kidney Injury. General: Denies: Chills, Night Sweats Constitutional: Denies: Chills, Fever Eyes: Denies: Pain, Vision change ENT: Denies: Head Aches, Ear Pain Skin: Denies: Rash, Lesions Pulmonary: Denies: Dyspnea, Cough Cardiovascular: Denies: Chest Pain, Palpitations Gastrointestinal: Denies: Nausea, Vomiting Genitourinary: Denies: Dysuria, Frequency Objective Physical Examination General Exam: Positive: Alert, Cooperative, No Acute Distress ENT Exam: Positive: Atraumatic, Mucous membr. moist/pink Neck Exam: Negative: JVD Chest Exam: Positive: Clear to auscultation, Normal air movement Heart Exam: Positive: Rate Normal, Normal S1, Normal S2 Abdomen Exam: Positive: Soft, Negative: Tenderness Extremity Exam: Negative: Tenderness, Swelling Psych Exam: Positive: Oriented x 3 Assessment /Plan Plan/VTE VTE Prophylaxis Ordered?: Yes Plan Hx of auditory and visual hallucinations. MRI/MRA Brain with no acute findings No metabolic, infectious etiology, or reversible etiology noted Psychiatry consult appreciated--Cymbalta to be tapered. Neurology also consulted who recommends outpatient followup in [place], where the patient follows with a neurologist No further episodes of hallucinations here Uncontrolled DM HgbA1c noted to be 8.8% Cont Levemir, ISS Acute on chronic kidney injury Baseline creatinine of 1.3 in 03/2016, Serum Creatinine 1.6 this AM We will continue to monitor bmp Recurrent Falls Patient being evaluated by PT Severe peripheral neuropathy 2/[address] of the head, neck, and thoracic spine with no acute findings Obstructive sleep apnea (STORM) On continuous positive airway pressure (CPAP). Hypothyroidism Cont Synthroid. Depression Psych input appreciated. Cont tapering dose of Cymbalta Deep venous thrombosis (DVT) prophylaxis on heparin. Dispo--Anticipate d/c in 24-48 hrs pending PT clearance VS, I&O, 24H, Fishbone Vital Signs/I&O Vital Signs Date Time Temp Pulse Resp B/P (MAP) Pulse Ox O2 Delivery O2 Flow Rate FiO2 08/16/16 10:15 68 142/68 08/16/16 09:00 Room Air 08/16/16 06:00 97.4 18 98 I&O- Last 24 Hours up to 6 AM 08/16/16 06:00 Intake Total 3720 ml Output Total 5750 ml Balance -2030 ml Laboratory Data 24H LABS Laboratory Tests 2 08/15/16 16:49: Bedside Glucose (Misc Panel) 360H 08/15/16 20:17: Bedside Glucose (Misc Panel) 378H 08/16/16 07:13: Anion Gap 5L, Glomerular Filtration Rate 34.9L, Blood Urea Nitrogen 26H, Creatinine 1.60H, Sodium Level 140, Potassium Level 5.3H, Chloride Level 110H, Carbon Dioxide Level 25, Calcium Level 8.8 08/16/16 07:44: Bedside Glucose (Misc Panel) 290H 08/16/16 11:35: Bedside Glucose (Misc Panel) 394H CBC/BMP Laboratory Tests 08/16/16 07:13 Red Blood Count 3.70 L, Mean Corpuscular Volume 96.4 H, Mean Corpuscular Hemoglobin 32.4, Mean Corpuscular Hemoglobin Concent 33.6, Red Cell Distribution Width 13.8, Calcium Level 8.8 JOHN KENNEY MD Aug 16, 2016 13:46
[2016-08-16 14:00] VITALS: BP 140/62
[2016-08-16] MEDS: NIACIN SR (NIASPAN) 500 MG TAB PO SCH (20:28)
[2016-08-16] MEDS: SIMVASTATIN 20 MG TAB PO SCH (20:28)
[2016-08-16] MEDS: AMITRIPTYLINE 10 MG TAB PO SCH (20:28)
[2016-08-16 22:00] VITALS: BP 128/70
[2016-08-17] MEDS: HEPARIN SOD (PORCINE) 5000 UNITS/ML VIAL SC SCH (05:39)
[2016-08-17] MEDS: LEVOTHYROXINE 100MCG TABLET (0.1MG) PO SCH (05:40)
[2016-08-17 06:00] VITALS: BP 120/72
[2016-08-17 06:13] LABS: MEAN CORPUSCULAR HEMOGLOBIN 32.2 pg (27.0-33.0); MEAN CORPUSCULAR HGB CONC 33.6 g/dl (32.0-36.5); RED CELL DISTRIBUTION WIDTH 13.7 % (11.5-14.5); WHITE BLOOD COUNT 4.1 K/mm3 (4.0-10.0)
--- NOTE | 2016-08-17 07:07 | EEG ---
DATE OF EE08/15/2016 REFERRING PHYSICIAN: Dr. Kirstie Heath DIAGNOSIS: Seizures. EEG NUMBER: [id number] HISTORY: Patient is a 60-year-old woman who was admitted at [facility] due to auditory and visual hallucinations and behavioral changes. She had episodes of uncontrolled movements of her extremities. This EEG was done to rule out epileptic potential. She is currently taking amitriptyline, baclofen, Wellbutrin, losartan, simvastatin, niacin, Lyrica, Cymbalta, propranolol, etc. This EEG was done to rule out epileptic potential. TECHNICAL DESCRIPTION: This digital EEG was recorded by 21 scalp, ear and two EKG electrodes and was reviewed in bipolar and referential montages following reformatting in 10-20 international electrode placement system. INTERPRETATION: The patient was noted to be in awake and drowsy states during this EEG. Resting background rhythm consisted of 7-8 Hz theta activity measuring 15-40 microvolts in amplitude, which was symmetric bilaterally. Stage 1 and 2 sleep were reviewed and were symmetric bilaterally. Hyperventilation could not be performed. Photic stimulation remained unremarkable. EKG revealed normal sinus rhythm. No focal, lateralizing or epileptiform abnormalities were seen. No clinical or electrographic seizures were recorded. CONCLUSION: This EEG in awake, drowsy states, stage 1 and 2 sleep is mildly abnormal due to presence of mild generalized slowing consistent with nonspecific diffuse cerebral dysfunction such as seen in encephalopathy due to multiple potential causes including toxic, metabolic, autoimmune, infectious, medication related or multifocal structural brain abnormalities. No epileptiform abnormalities were seen. Clinical correlation is recommended.
[2016-08-17 07:09] LABS: CALCIUM LEVEL 8.7 MG/DL (8.8-10.2); CREATININE FOR GFR 1.64 MG/DL (0.55-1.02); GLOMERULAR FILTRATION RATE 33.9 (>45); POTASSIUM SERUM 4.7 MEQ/L (3.5-5.1)
[2016-08-17] MEDS: HumaLOG INSULIN (NovoLOG) PER UNIT SC SCH ×2 (07:38→11:31)
[2016-08-17] MEDS: PANTOPRAZOLE 40MG TAB (PROTONIX) PO SCH (08:23)
[2016-08-17] MEDS: FENOFIBRATE 145 MG TAB (TRICOR) PO SCH (08:23)
[2016-08-17] MEDS: buPROPion **SR TABLET** (ZYBAN) 150MG PO SCH (08:23)
[2016-08-17] MEDS: PREGABALIN 100 MG CAP (LYRICA) PO SCH (08:23)
[2016-08-17 08:24] VITALS: BP 128/68
[2016-08-17] MEDS: BACLOFEN 10 MG TAB PO SCH (08:24)
[2016-08-17] MEDS: PROPRANOLOL 60 MG LA CAP PO SCH (08:24)
[2016-08-17] MEDS: NYSTATIN 100,000 UNITS/GM TOPICAL PWD 15 GM TOP SCH (08:25)
[2016-08-17] MEDS: LEVEMIR (INSULIN DETEMIR) 1 UNITS/0.01ML SC SCH (08:25)
[2016-08-17] MEDS ORDERED: DULoxetine 30 MG CAP (CYMBALTA) PO SCH (09:00)
--- NOTE | 2016-08-17 10:23 | DS.PDOC ---
Discharge Summary General Date of Admission Aug 12, 2016 at 12:33 Date of Discharge 08/17/16 Specialist/Consultants Involve: VICENTE FLOYD MD Discharge Summary PROCEDURES PERFORMED DURING STAY: None. ADMITTING DIAGNOSES: 1. . Auditory and visual hallucinations 2. . Acute kidney injury superimposed on chronic kidney disease 3. . Diabetes mellitus DISCHARGE DIAGNOSES: 1. . Auditory and visual hallucinations 2. . Acute kidney injury superimposed on chronic kidney disease 3. . Diabetes mellitus COMPLICATIONS/CHIEF COMPLAINT: Acute Kidney Injury. HISTORY OF PRESENT ILLNESS: . 60-year-old female past Medical history of depression, chronic kidney disease, diabetes, hypothyroidism presented to the ER with a chief complaint of feeling unwell. The patient explained that she had auditory and visual hallucinations. The patient states that she sees two people talking to each other in her presence who are not actually there. She states that this is not the first time that an incident like this has occurred. She reports that this has been happening since January 2016. She was hospitalized for this in the [facility] at that time and a medical workup revealed no acute findings according to her. She states that she was started on medications for this and she follows with her primary care physician and neurologist in the [place] area. She denies any suicidal or homicidal ideations. In the ER, the patient was noted to have an acute kidney injury. The hospitalist service was called for further evaluation and management. During hospitalization, a CT scan of the head and MRI/MRA of the brain revealed no acute findings. Psychiatry was consulted and recommended down tapering the patient's Cymbalta and then discontinuing. During her time here at the hospital , the patient has no longer had any auditory or visual hallucinations. Neurology was also consulted here, and they recommended that the patient follow- up with her neurologist in [place] for further evaluation. As for the patient's acute kidney injury, it appears that her serum creatinine has trended back down towards its normal baseline of 1.3-1.6. In addition, the patient's diabetes was managed with her previously prescribed regimen. However, I did discuss the need for the patient to have this regimen further modified with her primary care physician as she still has remained relatively hyperglycemic. At this time, the patient states that she is feeling much better and is eager to return home. The patient has been seen and cleared by physical therapy. I've advised patient to follow-up with her primary care physician and neurologist within 1-2 weeks for further evaluation and management of her chronic comorbidities. DISCHARGE MEDICATIONS: Please see below. ALLERGIES: Please see below. PHYSICAL EXAMINATION ON DISCHARGE: VITAL SIGNS: Please see below. General Exam: Positive: Alert, Cooperative, No Acute Distress ENT Exam: Positive: Atraumatic, Mucous membr. moist/pink Neck Exam: Negative: JVD Chest Exam: Positive: Clear to auscultation, Normal air movement Heart Exam: Positive: Rate Normal, Normal S1, Normal S2 Abdomen Exam: Positive: Soft, Negative: Tenderness Extremity Exam: Negative: Tenderness, Swelling Psych Exam: Positive: Oriented x 3 LABORATORY DATA: Please see below. IMAGING: MRA BRAIN WITHOUT CONTRAST: HISTORY: Altered mental status. 3D TOF MR angiography was performed at the level of the [place] of [place]. There is no aneurysm or arteriovenous malformation. Mild atherosclerotic disease involves the cavernous internal carotid arteries. There is origin of the left posterior cerebral artery. 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 Major intracranial vessels are patent. The left vertebral artery is dominant. IMPRESSION: 1. There is no aneurysm or arteriovenous malformation. 2. Atherosclerotic disease as described above. MR BRAIN WITHOUT CONTRAST: HISTORY: Altered mental status. COMPARISON: CT 08/12/2016 There are no areas of abnormal signal intensity in the brain. There is no intraparenchymal hemorrhage, acute infarct, mass or midline shift. The ventricular system is normal in appearance. There is no extracerebral collection. Mucosal thickening is present in the right maxillary and sphenoid sinuses and right mastoid air cells. IMPRESSION: There is no intracranial lesion. PROGNOSIS: Medically stable ACTIVITY: As tolerated. DIET: . Carb consistent diet DISCHARGE PLAN: Home DISPOSITION: . DISCHARGE INSTRUCTIONS: 1. . Follow-up with primary care doctor and neurologist within 1-2 weeks 2. . Return to ER if symptoms return or persist. DISCHARGE CONDITION: Stable. TIME SPENT ON DISCHARGE: Greater than 30 minutes. Vital Signs/I&Os Vital Signs Date Time Temp Pulse Resp B/P (MAP) Pulse Ox O2 Delivery O2 Flow Rate FiO2 08/17/16 08:24 72 128/68 08/17/16 06:00 97.2 17 97 08/16/16 19:40 Room Air I&O- Last 24 Hours up to 6 AM 08/17/16 05:59 Intake Total 2680 ml Output Total 4350 ml Balance -1670 ml Laboratory Data Labs 24H Laboratory Tests 2 08/16/16 11:35: Bedside Glucose (Misc Panel) 394H 08/16/16 16:30: Bedside Glucose (Misc Panel) 381H 08/16/16 20:09: Bedside Glucose (Misc Panel) 421H 08/17/16 06:01: Anion Gap 8, Glomerular Filtration Rate 33.9L, Blood Urea Nitrogen 29H, Creatinine 1.64H, Sodium Level 143, Potassium Level 4.7, Chloride Level 110H, Carbon Dioxide Level 25, Calcium Level 8.7L CBC/BMP Laboratory Tests 08/17/16 06:01 Red Blood Count 3.68 L, Mean Corpuscular Volume 96.0, Mean Corpuscular Hemoglobin 32.2, Mean Corpuscular Hemoglobin Concent 33.6, Red Cell Distribution Width 13.7, Calcium Level 8.7 L FSBS Laboratory Tests Test 08/16/16 11:35 08/16/16 16:30 08/16/16 20:09 Range/Units Bedside Glucose (Misc Panel) 394 381 421 80-115 MG/DL Discharge Medications Scheduled (Toujeo Solostar) 300 Unit/Ml Inj, 80 UNIT SC QAM, (Reported) (Toujeo Solostar) 300 Unit/Ml Inj, 20 UNIT SC QHS, (Reported) Amitriptyline HCl (Amitriptyline HCl) 10 Mg Tab, 60 MG PO QHS, (Reported) Baclofen (Baclofen) 10 Mg Tab, 20 MG PO BID, (Reported) Bupropion HCl (Bupropion HCl Sr) 150 Mg Tab, 150 MG PO BID, (Reported) Cyanocobalamin (Vitamin B12) 100 Mcg Tab, 200 MCG PO DAILY, (Reported) Fenofibrate (Fenofibrate) 145 Mg Tab, 145 MG PO DAILY, (Reported) Furosemide (Furosemide) 20 Mg Tab, 20 MG PO DAILY, (Reported) Glimepiride (Glimepiride) 4 Mg Tab, 4 MG PO BID, (Reported) Insulin Human Lispro (Humalog Kwikpen) 100 Unit/Ml Inj, 30 UNITS SC AC, ( Reported) Insulin Human Lispro (Humalog Kwikpen) 100 Unit/Ml Inj, 0 SC AC, (Reported) PER SLIDING SCALE IN ADDITION TO SCHEDULED 30 UNITS Levothyroxine Sodium (Synthroid) 200 Mcg Tab, 200 MCG PO DAILY, (Reported) Liraglutide (Victoza) 18 Mg/3 Ml Inj, 1.8 MG SC DAILY, (Reported) Losartan Potassium (Losartan Potassium) 50 Mg Tab, 50 MG PO DAILY, (Reported) Lovastatin (Lovastatin) 20 Mg Tab, 20 MG PO DAILY, (Reported) Meloxicam (Meloxicam) 7.5 Mg Tab, 15 MG PO DAILY, (Reported) Niacin (Niacin ER) 500 Mg Tab, 500 MG PO QHS, (Reported) Pantoprazole Sodium (Pantoprazole Sodium) 40 Mg Tab, 40 MG PO DAILY, (Reported) Pregabalin (Lyrica) 100 Mg Cap, 100 MG PO TID, (Reported) Propranolol HCl (Propranolol HCl ER) 120 Mg Cap, 240 MG PO DAILY, (Reported) Vitamin D (Drisdol) 50,000 Unit Cap, 50,000 UNIT PO QWEEK, (Reported) MONDAYS Scheduled PRN Albuterol Sulfate (Ventolin Hfa) 200 Puff/8 Gm Aers, 2 PUFF INH QID PRN for SHORTNESS OF BREATH, (Reported) Allergies Coded Allergies: Morphine (Verified Adverse Reaction, Intermediate, itching and vomiting, ) JOHN KENNEY MD Aug 17, 2016 10:23
== END 2016-08-17 13:34 | disposition home or self-care (01) | DRG 683 ==
LOC: EDBD 08:11 → M ED 08:11 → M ED INP 12:33 → M MSPAV 14:07
PROVIDERS: ADMIT Internal Medicine; ATTEND Internal Medicine
DX: N17.9 Acute kidney failure, unspecified (principal); F32.3 Major depressive disorder, single episode, severe with psychotic features; Z68.42 Body mass index [BMI] 45.0-49.9, adult; E11.65 Type 2 diabetes mellitus with hyperglycemia; F32.9 Major depressive disorder, single episode, unspecified; E89.0 Postprocedural hypothyroidism; N18.9 Chronic kidney disease, unspecified; Z90.710 Acquired absence of both cervix and uterus; Z79.4 Long term (current) use of insulin; Z79.899 Other long term (current) drug therapy; E66.01 Morbid (severe) obesity due to excess calories; R41.82 Altered mental status, unspecified; E11.42 Type 2 diabetes mellitus with diabetic polyneuropathy; G47.33 Obstructive sleep apnea (adult) (pediatric)